=== PATIENT | male | born 1935 | race African-American/Black ===

== ENCOUNTER 2019-05-31 14:07 | Inpatient (IN) ==
[2019-05-31] MEDS ORDERED: GLUCAGON 1 MG VIAL IM PRN (16:28)
[2019-05-31] MEDS ORDERED: DEXTROSE 10% 250 ML BAG IV PRN (16:28)
[2019-05-31] MEDS ORDERED: PANTOPRAZOLE 40 MG TABLET PO SCH (16:30)
[2019-05-31 17:17] LABS: Basophils # 0.1 10*3/uL (0.0-0.2); Basophils % 0.3 % (0.0-0.8); Eosinophils # 0.1 10*3/uL (0.0-0.87); Eosinophils % 0.7 % (0.00-10.9); Hematocrit 36.8 VOL% (42.0-52.0); Hemoglobin 11.8 GM/DL (14.0-18.0); Immature Granulocytes % 0.7 %; Immature Granulocytes Absolute 0.12 #; Lymphocytes # 3.5 10*3/uL (1.4-4.0); Lymphocytes % 21.5 % (21.2-54.2); Mean Corpuscular HGB Conc 32.1 GM/DL (32-36); Mean Corpuscular Volume 88.9 FL (87-102); Mean Platelet Volume 10.8 FL (9.6-12.0); Monocytes % 6.9 % (1.7-12.7); Neutrophils % 69.9 % (38.7-73.9); Platelet Count 412 T/CUMM (130-400); Red Blood Count 4.14 MC/CUMM (3.8-5.5); White Blood Count 16.3 T/CUMM (4-12)
[2019-05-31 17:38] LABS: Alanine Aminotransferase 136 U/L (16-61); Albumin 2.6 G/DL (3.4-5.0); Alkaline Phosphatase 101 U/L (45-117); Aspartate Amino Transferase 74 U/L (0-37); Bilirubin,Total < 0.39 MG/DL (0.2-1.0); Blood Urea Nitrogen 89 MG/DL (7-18); Calcium 9.4 MG/DL (8.5-10.1); Glucose 139 MG/DL (74-106); Osmolality,Calculated 307.4 MOS/KG (273-304); Total Protein 8.7 G/DL (6.4-8.3)
[2019-05-31 17:41] LABS: Estimated Glom Filtration Rate 0 ML/MIN
[2019-05-31 17:44] LABS: PT Patient Result 10.4 SECS (9.6-12.2)
[2019-05-31] MEDS: INSULIN LISPRO 100 UNIT/ML SUBCUT SCH (18:26)
[2019-05-31] MEDS: lisinopriL 20 MG TABLET PO SCH (21:44)
[2019-05-31] MEDS: hydrALAZINE 25 MG TABLET PO SCH (21:44)
[2019-05-31] MEDS: FERROUS SULFATE 325 MG TABLET PO SCH (21:44)
[2019-05-31] MEDS: MONTELUKAST 10 MG TABLET PO SCH (21:44)
[2019-05-31] MEDS: BACLOFEN 10 MG TABLET PO SCH (21:44)
[2019-05-31] MEDS: SIMVASTATIN 20 MG TABLET PO SCH (21:44)
[2019-05-31] MEDS: TORSEMIDE 20 MG TABLET PO SCH (21:44)
[2019-05-31] MEDS: TAMSULOSIN 0.4 MG CAPSULE PO SCH (21:44)
[2019-05-31] MEDS: INSULIN GLARGINE 100 UNIT/ML SUBCUT SCH (21:45)
[2019-05-31] MEDS: GABAPENTIN 600 MG TABLET PO SCH (21:47)
[2019-06-01] MEDS: LATANOPROST 0.005% OPH SOLN 2.5 ML BOTTLE BOTH EYES SCH ×2 (00:01→21:30)
[2019-06-01] MEDS ORDERED: MORPHINE 4 MG/1 ML VIAL IV PRN (05:47)
[2019-06-01] MEDS ORDERED: ceFAZolin 2,000 MG in PREMIX 1 EACH IV ONE (06:00)
[2019-06-01] MEDS: LACTATED RINGERS 1,000 ML IV SCH ×3 (10:10→23:35)
[2019-06-01] MEDS ORDERED: ACETAMINOPHEN 325 MG TABLET PO PRN (11:22)
[2019-06-01] MEDS ORDERED: ONDANSETRON 4 MG/2 ML VIAL IV PRN (11:22)
[2019-06-01] MEDS ORDERED: GLUCAGON 1 MG VIAL IM PRN (11:22)
[2019-06-01] MEDS ORDERED: HYDROmorphone 2 MG/1 ML VIAL IV PRN (11:22)
[2019-06-01] MEDS ORDERED: DEXTROSE 10% 250 ML BAG IV PRN (11:22)
[2019-06-01] MEDS ORDERED: propofoL 200 MG/20 ML VIAL IV ONE (11:38)
[2019-06-01] MEDS ORDERED: ePHEDrine 50 MG/ML AMP ONE (11:38)
[2019-06-01] MEDS ORDERED: SEVOFLURANE 1 UNIT/15 MINUTE INH ONE (11:38)
[2019-06-01] MEDS ORDERED: DEXAMETHASONE 4 MG/1 ML VIAL ONE (11:38)
[2019-06-01] MEDS ORDERED: HYDROmorphone 2 MG/1 ML VIAL ONE (11:38)
[2019-06-01] MEDS ORDERED: KETOROLAC 30 MG/1 ML VIAL ONE (11:39)
[2019-06-01] MEDS ORDERED: NEOSTIGMINE 10 MG/10 ML VIAL ONE (11:39)
[2019-06-01] MEDS ORDERED: GLYCOPYRROLATE 0.4 MG/2 ML VIAL ONE (11:39)
[2019-06-01] MEDS ORDERED: ROCURONIUM 100 MG/10 ML VIAL IV ONE (11:39)
[2019-06-01] MEDS ORDERED: ONDANSETRON 4 MG/2 ML VIAL ONE (11:39)
[2019-06-01] MEDS ORDERED: DEXTROSE 10% 250 ML BAG IV ONE ×2 (11:40→12:12)
[2019-06-01] MEDS ORDERED: DEXTROSE 50% 25 GM/50 ML VIAL IV ONE (11:40)
[2019-06-01] MEDS ORDERED: NALOXONE 0.4 MG/ML VIAL ONE (12:34)
[2019-06-01] MEDS ORDERED: NALOXONE 0.4 MG/ML VIAL IV ONE (12:42)
[2019-06-01 12:58] LABS: ABG Base Excess -4.4 MMOL/L (-2.5-2.5); ABG HCO3 20.8 MMOL/L (20-26); ABG Oxygen Saturation 98.3 % (95-100); ABG TCO2 30.6 MMOL/L (23-27); Glucose Heart Surgery 174 MG/DL (74-106); Hemoglobin Heart Surgery 11.6 G/DL (14.0-18.0); Ionized Calcium Arterial 1.43 MMOL/L (1.21-1.46); PH Patient Temp Arterial 7.014; Patient Temperature 37 CELCIUS; Potassium Heart/CVR 4.3 MMOL/L (3.5-5.1); Sodium Heart/CVR 142 MMOL/L (135-145)
[2019-06-01 12:59] LABS: ABG PH 7.014 (7.35-7.45); Hematocrit Heart Surgery 35.6 PERCENT (42-52)
[2019-06-01 13:35] LABS: ABG Base Excess -1.3 MMOL/L (-2.5-2.5); ABG HCO3 23.3 MMOL/L (20-26); ABG Oxygen Saturation 98.5 % (95-100); ABG PCO2 46.2 MM HG (35-48); ABG PH 7.337 (7.35-7.45); ABG TCO2 22.4 MMOL/L (23-27); Allen Test Positive; Pt O2 Delivery Device Ventilator
[2019-06-01] MEDS: INSULIN LISPRO 100 UNIT/ML SUBCUT SCH ×2 (14:15→16:16)
[2019-06-01] MEDS: INSULIN REGULAR 100 UNIT/ML SUBCUT SCH ×2 (14:19→16:16)
[2019-06-01 14:56] LABS: Apearance,Urine CLOUDY (Clear); Bilirubin,Urine Negative (Negative); Blood, Urine Negative (Negative); Glucose,Urine (UA) Negative (Negative); Ketones,Urine Negative (Negative); Mucus,Urine Occasional /LPF (Occasional); Nitrite,Urine Positive (Negative); Protein,Urine Negative; RBC,Urine 3 /HPF (0-4); Urine Color Yellow (Yellow); Urine Specific Gravity 1.011 (1.001-1.035); Urine Urobilinogen < 2.0 EU/DL (0.2-1.0); WBC,Urine 258 /HPF (0-6)
[2019-06-01] MEDS: POLYETHYLENE GLYCOL POWDER 17 GM PACK PO SCH (17:22)
[2019-06-01] MEDS: hydroCHLOROthiazide 25 MG TABLET PO SCH (17:22)
[2019-06-01] MEDS: FERROUS SULFATE 325 MG TABLET PO SCH ×3 (17:22→21:29)
[2019-06-01] MEDS: GABAPENTIN 600 MG TABLET PO SCH ×2 (17:22→21:29)
[2019-06-01] MEDS: TORSEMIDE 20 MG TABLET PO SCH ×2 (17:22→21:29)
[2019-06-01] MEDS: hydrALAZINE 25 MG TABLET PO SCH ×2 (17:22→21:29)
[2019-06-01] MEDS: lisinopriL 20 MG TABLET PO SCH ×2 (17:23→21:29)
[2019-06-01] MEDS: CHOLECALCIFEROL 1,000 UNIT TABLET PO SCH (17:23)
[2019-06-01] MEDS: allopurinoL 100 MG TABLET PO SCH (17:23)
[2019-06-01] MEDS: INSULIN GLARGINE 100 UNIT/ML SUBCUT SCH (21:23)
[2019-06-01] MEDS: MONTELUKAST 10 MG TABLET PO SCH (21:29)
[2019-06-01] MEDS: SIMVASTATIN 20 MG TABLET PO SCH (21:30)
[2019-06-01] MEDS: BACLOFEN 10 MG TABLET PO SCH (21:30)
[2019-06-01] MEDS: TAMSULOSIN 0.4 MG CAPSULE PO SCH (21:30)
[2019-06-02] MEDS: INSULIN REGULAR 100 UNIT/ML SUBCUT SCH ×5 (00:19→23:11)
[2019-06-02 04:12] LABS: Basophils % 0.2 % (0.0-0.8); Eosinophils % 0.1 % (0.00-10.9); Hematocrit 35.7 VOL% (42.0-52.0); Immature Granulocytes % 0.6 %; Lymphocytes # 1.7 10*3/uL (1.4-4.0); Lymphocytes % 9.4 % (21.2-54.2); Mean Corpuscular HGB Conc 30.8 GM/DL (32-36); Mean Platelet Volume 11.3 FL (9.6-12.0); Monocytes % 7.1 % (1.7-12.7); Neutrophils % 82.6 % (38.7-73.9); Platelet Count 326 T/CUMM (130-400); Red Blood Count 3.84 MC/CUMM (3.8-5.5); Red Cell Distribution Width 13.9 % (9.3-17.3); White Blood Count 17.7 T/CUMM (4-12)
[2019-06-02 04:18] LABS: ABG Base Excess 0.8 MMOL/L (-2.5-2.5); ABG HCO3 25.1 MMOL/L (20-26); ABG Oxygen Saturation 99.5 % (95-100); ABG PCO2 35.1 MM HG (35-48); ABG PH 7.451 (7.35-7.45); Pt O2 Delivery Device Ventilator
[2019-06-02 04:29] LABS: Calcium 9.4 MG/DL (8.5-10.1); Osmolality,Calculated 305.7 MOS/KG (273-304)
[2019-06-02] MEDS: GABAPENTIN 600 MG TABLET PO SCH ×2 (08:09→20:01)
[2019-06-02] MEDS: CHOLECALCIFEROL 1,000 UNIT TABLET PO SCH (08:09)
[2019-06-02] MEDS: lisinopriL 20 MG TABLET PO SCH ×2 (08:09→20:01)
[2019-06-02] MEDS: hydroCHLOROthiazide 25 MG TABLET PO SCH (08:09)
[2019-06-02] MEDS: hydrALAZINE 25 MG TABLET PO SCH ×2 (08:09→20:02)
[2019-06-02] MEDS: FERROUS SULFATE 325 MG TABLET PO SCH ×3 (08:09→20:03)
[2019-06-02] MEDS: INSULIN LISPRO 100 UNIT/ML SUBCUT SCH ×3 (08:09→18:02)
[2019-06-02] MEDS: POLYETHYLENE GLYCOL POWDER 17 GM PACK PO SCH (08:09)
[2019-06-02] MEDS: TORSEMIDE 20 MG TABLET PO SCH ×2 (08:10→20:03)
[2019-06-02] MEDS: allopurinoL 100 MG TABLET PO SCH (08:10)
[2019-06-02] MEDS: LACTATED RINGERS 1,000 ML IV SCH (15:51)
[2019-06-02] MEDS: BACLOFEN 10 MG TABLET PO SCH (20:02)
[2019-06-02] MEDS: SIMVASTATIN 20 MG TABLET PO SCH (20:02)
[2019-06-02] MEDS: TAMSULOSIN 0.4 MG CAPSULE PO SCH (20:02)
[2019-06-02] MEDS: MONTELUKAST 10 MG TABLET PO SCH (20:03)
[2019-06-02] MEDS: INSULIN GLARGINE 100 UNIT/ML SUBCUT SCH (20:04)
[2019-06-02] MEDS: LATANOPROST 0.005% OPH SOLN 2.5 ML BOTTLE BOTH EYES SCH (20:15)
[2019-06-03] MEDS: INSULIN REGULAR 100 UNIT/ML SUBCUT SCH ×3 (06:03→18:21)
[2019-06-03] MEDS: INSULIN LISPRO 100 UNIT/ML SUBCUT SCH ×3 (08:37→18:21)
[2019-06-03] MEDS: TORSEMIDE 20 MG TABLET PO SCH ×2 (08:43→21:55)
[2019-06-03] MEDS: hydroCHLOROthiazide 25 MG TABLET PO SCH (08:43)
[2019-06-03] MEDS: GABAPENTIN 600 MG TABLET PO SCH ×2 (08:43→21:58)
[2019-06-03] MEDS: lisinopriL 20 MG TABLET PO SCH ×2 (08:43→21:58)
[2019-06-03] MEDS: POLYETHYLENE GLYCOL POWDER 17 GM PACK PO SCH (08:43)
[2019-06-03] MEDS: allopurinoL 100 MG TABLET PO SCH (08:43)
[2019-06-03] MEDS: hydrALAZINE 25 MG TABLET PO SCH ×2 (08:44→21:55)
[2019-06-03] MEDS: CHOLECALCIFEROL 1,000 UNIT TABLET PO SCH (08:44)
[2019-06-03] MEDS: FERROUS SULFATE 325 MG TABLET PO SCH ×3 (08:44→21:57)
[2019-06-03] MEDS: PANTOPRAZOLE 40 MG TABLET PO SCH (08:44)
[2019-06-03] MEDS: cefTAZidime 1,000 MG in SYRINGE 1 EACH IV SCH (12:28)
[2019-06-03] MEDS: TAMSULOSIN 0.4 MG CAPSULE PO SCH (21:57)
[2019-06-03] MEDS: BACLOFEN 10 MG TABLET PO SCH (21:57)
[2019-06-03] MEDS: SIMVASTATIN 20 MG TABLET PO SCH (21:58)
[2019-06-03] MEDS: MONTELUKAST 10 MG TABLET PO SCH (21:58)
[2019-06-03] MEDS: INSULIN GLARGINE 100 UNIT/ML SUBCUT SCH (22:06)
[2019-06-04] MEDS: LATANOPROST 0.005% OPH SOLN 2.5 ML BOTTLE BOTH EYES SCH ×2 (00:18→21:59)
[2019-06-04] MEDS: INSULIN REGULAR 100 UNIT/ML SUBCUT SCH ×4 (01:01→17:56)
[2019-06-04] MEDS: cefTAZidime 1,000 MG in SYRINGE 1 EACH IV SCH ×2 (01:20→13:08)
[2019-06-04] MEDS: INSULIN LISPRO 100 UNIT/ML SUBCUT SCH ×3 (08:50→17:55)
[2019-06-04] MEDS: hydrALAZINE 25 MG TABLET PO SCH ×2 (09:11→21:59)
[2019-06-04] MEDS: hydroCHLOROthiazide 25 MG TABLET PO SCH (09:11)
[2019-06-04] MEDS: GABAPENTIN 600 MG TABLET PO SCH ×2 (09:11→21:59)
[2019-06-04] MEDS: FERROUS SULFATE 325 MG TABLET PO SCH ×3 (09:11→21:59)
[2019-06-04] MEDS: allopurinoL 100 MG TABLET PO SCH (09:11)
[2019-06-04] MEDS: CHOLECALCIFEROL 1,000 UNIT TABLET PO SCH (09:12)
[2019-06-04] MEDS: TORSEMIDE 20 MG TABLET PO SCH ×2 (09:12→21:59)
[2019-06-04] MEDS: lisinopriL 20 MG TABLET PO SCH ×2 (09:12→21:59)
[2019-06-04] MEDS: POLYETHYLENE GLYCOL POWDER 17 GM PACK PO SCH (09:13)
[2019-06-04] MEDS: TAMSULOSIN 0.4 MG CAPSULE PO SCH (21:59)
[2019-06-04] MEDS: BACLOFEN 10 MG TABLET PO SCH (21:59)
[2019-06-04] MEDS: MONTELUKAST 10 MG TABLET PO SCH (21:59)
[2019-06-04] MEDS: SIMVASTATIN 20 MG TABLET PO SCH (21:59)
[2019-06-04] MEDS: INSULIN GLARGINE 100 UNIT/ML SUBCUT SCH (22:00)
[2019-06-05] MEDS: cefTAZidime 1,000 MG in SYRINGE 1 EACH IV SCH ×2 (02:27→13:59)
[2019-06-05] MEDS: INSULIN REGULAR 100 UNIT/ML SUBCUT SCH ×4 (06:00→18:37)
[2019-06-05] MEDS: INSULIN LISPRO 100 UNIT/ML SUBCUT SCH ×3 (08:56→18:37)
[2019-06-05] MEDS: GABAPENTIN 600 MG TABLET PO SCH ×2 (09:02→21:45)
[2019-06-05] MEDS: CHOLECALCIFEROL 1,000 UNIT TABLET PO SCH (09:03)
[2019-06-05] MEDS: FERROUS SULFATE 325 MG TABLET PO SCH ×3 (09:03→21:46)
[2019-06-05] MEDS: hydroCHLOROthiazide 25 MG TABLET PO SCH (09:03)
[2019-06-05] MEDS: TORSEMIDE 20 MG TABLET PO SCH ×2 (09:03→21:45)
[2019-06-05] MEDS: lisinopriL 20 MG TABLET PO SCH ×2 (09:03→21:45)
[2019-06-05] MEDS: POLYETHYLENE GLYCOL POWDER 17 GM PACK PO SCH (09:03)
[2019-06-05] MEDS: allopurinoL 100 MG TABLET PO SCH (09:03)
[2019-06-05] MEDS: hydrALAZINE 25 MG TABLET PO SCH ×2 (09:03→21:52)
[2019-06-05] MEDS: SIMVASTATIN 20 MG TABLET PO SCH (21:46)
[2019-06-05] MEDS: BACLOFEN 10 MG TABLET PO SCH (21:46)
[2019-06-05] MEDS: TAMSULOSIN 0.4 MG CAPSULE PO SCH (21:46)
[2019-06-05] MEDS: MONTELUKAST 10 MG TABLET PO SCH (21:46)
[2019-06-05] MEDS: LATANOPROST 0.005% OPH SOLN 2.5 ML BOTTLE BOTH EYES SCH (21:47)
[2019-06-05] MEDS: INSULIN GLARGINE 100 UNIT/ML SUBCUT SCH (21:47)
[2019-06-06] MEDS: cefTAZidime 1,000 MG in SYRINGE 1 EACH IV SCH ×2 (00:49→13:25)
[2019-06-06] MEDS: INSULIN REGULAR 100 UNIT/ML SUBCUT SCH ×4 (06:58→18:42)
[2019-06-06] MEDS: INSULIN LISPRO 100 UNIT/ML SUBCUT SCH ×3 (07:04→18:42)
[2019-06-06] MEDS: allopurinoL 100 MG TABLET PO SCH (08:59)
[2019-06-06] MEDS: TORSEMIDE 20 MG TABLET PO SCH ×2 (08:59→21:28)
[2019-06-06] MEDS: hydroCHLOROthiazide 25 MG TABLET PO SCH (09:00)
[2019-06-06] MEDS: lisinopriL 20 MG TABLET PO SCH ×2 (09:00→21:27)
[2019-06-06] MEDS: GABAPENTIN 600 MG TABLET PO SCH ×2 (09:00→21:27)
[2019-06-06] MEDS: hydrALAZINE 25 MG TABLET PO SCH ×2 (09:00→21:27)
[2019-06-06] MEDS: FERROUS SULFATE 325 MG TABLET PO SCH ×3 (09:00→21:27)
[2019-06-06] MEDS: PANTOPRAZOLE 40 MG TABLET PO SCH (09:00)
[2019-06-06] MEDS: CHOLECALCIFEROL 1,000 UNIT TABLET PO SCH (09:00)
[2019-06-06] MEDS: POLYETHYLENE GLYCOL POWDER 17 GM PACK PO SCH (09:00)
[2019-06-06] MEDS: TAMSULOSIN 0.4 MG CAPSULE PO SCH (21:27)
[2019-06-06] MEDS: LATANOPROST 0.005% OPH SOLN 2.5 ML BOTTLE BOTH EYES SCH (21:27)
[2019-06-06] MEDS: SIMVASTATIN 20 MG TABLET PO SCH (21:27)
[2019-06-06] MEDS: MONTELUKAST 10 MG TABLET PO SCH (21:27)
[2019-06-06] MEDS: BACLOFEN 10 MG TABLET PO SCH (21:28)
[2019-06-06] MEDS: INSULIN GLARGINE 100 UNIT/ML SUBCUT SCH (21:29)
[2019-06-07] MEDS: cefTAZidime 1,000 MG in SYRINGE 1 EACH IV SCH ×2 (00:49→11:53)
[2019-06-07] MEDS: INSULIN REGULAR 100 UNIT/ML SUBCUT SCH ×3 (01:34→12:10)
[2019-06-07] MEDS: FERROUS SULFATE 325 MG TABLET PO SCH (09:00)
[2019-06-07] MEDS: POLYETHYLENE GLYCOL POWDER 17 GM PACK PO SCH (09:01)
[2019-06-07] MEDS: hydroCHLOROthiazide 25 MG TABLET PO SCH (09:01)
[2019-06-07] MEDS: GABAPENTIN 600 MG TABLET PO SCH (09:01)
[2019-06-07] MEDS: hydrALAZINE 25 MG TABLET PO SCH (09:01)
[2019-06-07] MEDS: TORSEMIDE 20 MG TABLET PO SCH (09:01)
[2019-06-07] MEDS: CHOLECALCIFEROL 1,000 UNIT TABLET PO SCH (09:01)
[2019-06-07] MEDS: lisinopriL 20 MG TABLET PO SCH (09:01)
[2019-06-07] MEDS: allopurinoL 100 MG TABLET PO SCH (09:01)
[2019-06-07] MEDS: INSULIN LISPRO 100 UNIT/ML SUBCUT SCH ×2 (09:10→12:10)
[2019-06-07 11:01] VITALS: BP 116/67
== END 2019-06-07 12:40 | disposition swing bed (61) | DRG 240 ==
LOC: SUPCPDRO 14:42 → N.3E 14:42 → N.CC 06-01 14:05 → N.3E 06-03 16:23
PROVIDERS: ADMIT Surgery; ATTEND Surgery